=== PATIENT | female | born 1980 | race Caucasian/White ===

== ENCOUNTER 2018-12-25 07:20 | Emergency (ER) | payer SELFPAY, MEDICAID ==
[2018-12-25] MEDS: ONDANSETRON (ODT) 4 MG TAB ODT (08:03)
== END 2018-12-25 11:24 | disposition home or self-care (01) ==
LOC: FTE 07:20
DX: R19.7 Diarrhea, unspecified (principal); R11.0 Nausea
CPT/HCPCS: 99283